=== PATIENT | female | born 1995 | race Two or more races ===

== ENCOUNTER 2022-03-05 17:47 | Emergency (ER) | payer MEDICAID ==
[~2022-03-05] VITALS: Ht 175.3 cm; Wt 216.8 kg
[2022-03-05 17:59] VITALS: BP 163/103
--- NOTE | 2022-03-05 18:22 | NUR ---
26F presents to ED with c/o nausea today, and chest pain 1 hour ago. Pt reports sudden, sharp, 7/10 chest pain that lasted 2 seconds. Pt reports she is worried about being due to being nauseous all day and feeling bloated. Pt denies SOB, fatigue, dizziness, vomiting, diarrhea, fevers, chills or meds.
--- NOTE | 2022-03-05 19:25 | NUR ---
LAB AT BEDSIDE
[2022-03-05 19:42] LABS: BASOPHILS % (AUTO) 0.3 % (0.0-2.0); EOSINOPHILS # (AUTO) 0.2 K/uL (0-0.4); EOSINOPHILS % (AUTO) 3.2 % (0.0-4.0); HEMATOCRIT 42.3 % (36-48); HEMOGLOBIN 14.1 g/dL (12.0-16.0); LYMPHOCYTES # (AUTO) 2.2 K/uL (2.5-16.5); LYMPHOCYTES % (AUTO) 31.9 % (20.5-51.1); MEAN CORPUSCULAR HEMOGLOBIN 28 pg (27-31); MEAN CORPUSCULAR HGB CONC 33 g/dL (33-37); MEAN CORPUSCULAR VOLUME 83.8 fL (80-94); MONOCYTES # (AUTO) 0.5 K/uL (0.8-1.0); NEUTROPHILS % (AUTO) 57.6 % (42.2-75.2); PLATELET COUNT (AUTO) 262 K/uL (140-450); RED BLOOD CELL COUNT(AUTO) 5.04 MIL/uL (4.20-5.40); RED CELL DISTRIBUTION WIDTH 13.8 % (11.6-13.7); WHITE BLOOD COUNT (AUTO) 6.9 K/uL (4.8-10.8)
[2022-03-05 20:14] LABS: ALBUMIN 3.3 g/dL (3.4-5.0); ANION GAP 7.8 (8-16); ASPARTATE AMINOTRANSFERASE 33 U/L (15-37); CARBON DIOXIDE 30.1 mmol/L (21-32); CHLORIDE 104 mmol/L (98-107); CREATININE 0.7 mg/dL (0.6-1.3); GFR ARICAN-AMERICAN 128 mL/min (>90); GLUCOSE 84 mg/dL (74-106); POTASSIUM 3.9 mmol/L (3.5-5.1); SODIUM SERUM 138 mmol/L (136-145); TOTAL BILIRUBIN 0.2 mg/dL (0.0-1.0); UREA NITROGEN, BLOOD 14 mg/dL (7-18)
[2022-03-05] MEDS ORDERED: IBUP-2213 PO (21:15)
[2022-03-05] MEDS ORDERED: ONDA-188 SL (21:15)
[2022-03-05 21:30] VITALS: BP 152/84
--- NOTE | 2022-03-05 21:30 | NUR ---
Patient discharged with v/s stable. Written and verbal after care instructions given and explained. Patient alert, oriented and verbalized understanding of instructions. Ambulatory with steady gait. All questions addressed prior to discharge. ID band removed. Patient advised to follow up with PMD. Rx of zofran and ibuprofen given. Patient educated on indication of medication including possible reaction and side effects. Opportunity to ask questions provided and answered.
== END 2022-03-05 21:30 | disposition home or self-care (01) ==
LOC: MED 17:47
DX: R07.89 Other chest pain (principal); Z79.899 Other long term (current) drug therapy; Z79.1 Long term (current) use of non-steroidal anti-inflammatories (NSAID); Z88.0 Allergy status to penicillin
CPT/HCPCS: 36415; 71045; 80053; 81002; 81025; 84484; 85025; 85379; 93005; 99285

== ENCOUNTER 2022-07-27 18:07 | Emergency (ER) | payer MEDICAID ==
[~2022-07-27] VITALS: Ht 175.3 cm; Wt 208.2 kg
[~2022-07-27 18:07] MED LIST: IBUP-2213 PO; ONDA-188 SL
[2022-07-27 18:14] VITALS: BP 156/97
[2022-07-27] MEDS ORDERED: IBUP-2213 PO (19:14)
--- NOTE | 2022-07-27 21:29 | NUR ---
Pt seen and evaluated by POOL
--- NOTE | 2022-07-27 21:30 | NUR ---
Patient discharged with v/s stable. Written and verbal after care instructions given and explained. Patient alert, oriented and verbalized understanding of instructions. Ambulatory with steady gait. All questions addressed prior to discharge. ID band removed. Patient advised to follow up with PMD. Rx of ibuprofen. given. Patient educated on indication of medication including possible reaction and side effects. Opportunity to ask questions provided and answered.
[2022-07-27 21:31] VITALS: BP 156/97
== END 2022-07-27 21:30 | disposition home or self-care (01) ==
LOC: MED 18:07
DX: M54.10 Radiculopathy, site unspecified (principal); R07.89 Other chest pain; Z88.0 Allergy status to penicillin; Z79.899 Other long term (current) drug therapy
CPT/HCPCS: 93005; 99283